=== PATIENT | female | born 1945 | race African-American/Black ===

== ENCOUNTER 2021-02-12 11:43 | Inpatient (IN) | payer MEDICAID, MEDICARE ==
[~2021-02-12] VITALS: Ht 167.6 cm; Wt 50.8 kg
[2021-02-12] MEDS ORDERED: SODIUM CHLORIDE 0.9% 500 ML IV ONE (12:00)
[2021-02-12 14:37] LABS: Basophils # (auto) 0 10 ^3/uL (0-0.2); Eosinophils # (auto) 0 10 ^3/uL (0-0.8); Hemoglobin 10.2 g/dL (12.2-16.2); Monocytes # (auto) 0.5 10 ^3/uL (0-1.3); Nucleated Red Blood Cells % 0.1 %
[2021-02-12 14:39] LABS: Basophils % (auto) 0.4 % (0.0-2.0); Eosinophils % (auto) 0.4 % (0.0-7.0); Hematocrit 31.6 % (36.0-46.0); Lymphocytes # (auto) 0.8 10 ^3/uL (0.4-5.4); Lymphocytes % (auto) 9.9 % (10.0-50.0); Mean Corpuscular Hemoglobin 28.5 pg (28.0-32.0); Mean Corpuscular Hgb Conc. 32.3 g/dL (32.0-36.0); Mean Corpuscular Volume 88.1 fL (80.0-100.0); Monocytes % (auto) 5.9 % (0.0-12.0); Neutrophils # (auto) 6.5 10 ^3/uL (1.6-8.6); Neutrophils % (auto) 83.4 % (37.0-80.0); Platelet Count (auto) 444 10^3/uL (140-450); Red Blood Cells 3.58 10^6/uL (4.0-5.20); White Blood Cell 7.8 10^3/uL (4.4-10.8)
[2021-02-12] MEDS ORDERED: cefTRIAXone 1GM/50ML D5W 50 ML IV ONE (14:45)
[2021-02-12] MEDS ORDERED: CLINDAMYCIN 600MG IV 50 ML IV ONE (14:45)
[2021-02-12 14:47] LABS: Albumin 1.9 g/dL (3.4-5.0); Calcium 8.9 mg/dL (8.5-10.1); Potassium 4.2 mmol/L (3.5-5.1)
[2021-02-12 14:50] LABS: BUN/Creatinine Ratio 51.5; Bilirubin, Total 0.8 mg/dL (0.2-1.0)
[2021-02-12 14:51] LABS: Lactic Acid w/Reflex 3.2 mmol/L (0.4-2.0)
[2021-02-12] MEDS ORDERED: MORPHINE SULF INJ 2 MG/ML SYRINGE 1ML IV PRN ×3 (16:15→18:30)
[2021-02-12] MEDS ORDERED: NITROGLYCERIN 0.4 MG SL TAB SL PRN ×2 (16:15→18:30)
[2021-02-12] MEDS ORDERED: SILV1CRE EX (17:32)
[2021-02-12] MEDS ORDERED: SERT-275 PO (17:32)
[2021-02-12] MEDS ORDERED: MEGE1SUS5 PO (17:32)
[2021-02-12] MEDS ORDERED: OMEP-260 PO (17:32)
[2021-02-12] MEDS ORDERED: NUTR-397 PO (17:36)
[2021-02-12] MEDS ORDERED: HYDROcodone-ACET 5/325MG TAB PO PRN (18:30)
[2021-02-12] MEDS: SODIUM CHLORIDE 0.9% 1,000 ML IV SCH (18:30)
[2021-02-12] MEDS ORDERED: ALUM & MAG HYDROX-SIMETH LIQ(MAALOX) 30 ML PO PRN (18:30)
[2021-02-12] MEDS ORDERED: ONDANSETRON HCL 4 MG/2 ML VIAL IV PRN (18:30)
[2021-02-12] MEDS ORDERED: LORazepam 0.5 MG TAB PO PRN (18:30)
[2021-02-12] MEDS ORDERED: VANCOMYCIN PER PHARMACY 0 MG IV SCH (18:30)
[2021-02-12] MEDS ORDERED: DOCUSATE SOD 100 MG CAP PO PRN (18:30)
[2021-02-12] MEDS ORDERED: ACETAMINOPHEN 325 MG TAB PO PRN (18:30)
[2021-02-12 19:09] LABS: Cholesterol 111 mg/dL (< 200); HDL Cholesterol 25 mg/dL (40-59); LDL Cholesterol 79 mg/dL (< 100); Triglycerides 123 mg/dL (< 150)
[2021-02-12] MEDS ORDERED: VANCOMYCIN 1GM/250ML 250 ML IV ONE (19:30)
[2021-02-12 20:00] VITALS: BP 130/74
[2021-02-12 22:00] VITALS: BP 130/74
[2021-02-13] MEDS: PIPERACILLIN-TAZOB 2.25GM 50 ML IV SCH ×4 (00:43→17:54)
[2021-02-13 02:24] LABS: Basophils # (auto) 0 10 ^3/uL (0-0.2); Basophils % (auto) 0.4 % (0.0-2.0); Eosinophils # (auto) 0.1 10 ^3/uL (0-0.8); Eosinophils % (auto) 1.1 % (0.0-7.0); Hematocrit 28.5 % (36.0-46.0); Hemoglobin 9.3 g/dL (12.2-16.2); Lymphocytes # (auto) 0.9 10 ^3/uL (0.4-5.4); Lymphocytes % (auto) 13.2 % (10.0-50.0); Mean Corpuscular Hemoglobin 28.6 pg (28.0-32.0); Mean Corpuscular Hgb Conc. 32.7 g/dL (32.0-36.0); Mean Corpuscular Volume 87.4 fL (80.0-100.0); Monocytes # (auto) 0.7 10 ^3/uL (0-1.3); Monocytes % (auto) 9.9 % (0.0-12.0); Neutrophils % (auto) 75.4 % (37.0-80.0); Nucleated Red Blood Cells % 0.1 %; Platelet Count (auto) 414 10^3/uL (140-450); Red Blood Cells 3.26 10^6/uL (4.0-5.20); Red Cell Distribution Width 15.1 % (11.8-14.3); White Blood Cell 6.6 10^3/uL (4.4-10.8)
[2021-02-13 02:42] LABS: INR 1.19 (0.9-1.15)
[2021-02-13 02:43] LABS: Albumin 1.7 g/dL (3.4-5.0); BUN/Creatinine Ratio 46.8; Calcium 8.1 mg/dL (8.5-10.1); Magnesium 1.8 mg/dL (1.6-2.6); Potassium 3.9 mmol/L (3.5-5.1)
[2021-02-13 02:46] LABS: Bilirubin, Total 0.8 mg/dL (0.2-1.0); Phosphorus 2.6 mg/dL (2.5-4.90); Total Protein 6.3 g/dL (6.4-8.2)
[2021-02-13 05:00] VITALS: BP 138/91
[2021-02-13 06:47] LABS: Basophils # (auto) 0 10 ^3/uL (0-0.2); Basophils % (auto) 0.6 % (0.0-2.0); Eosinophils # (auto) 0.1 10 ^3/uL (0-0.8); Eosinophils % (auto) 1.6 % (0.0-7.0); Hematocrit 28.9 % (36.0-46.0); Hemoglobin 9.6 g/dL (12.2-16.2); Mean Corpuscular Hemoglobin 28.9 pg (28.0-32.0); Mean Corpuscular Hgb Conc. 33.2 g/dL (32.0-36.0); Mean Corpuscular Volume 87.1 fL (80.0-100.0); Monocytes # (auto) 0.7 10 ^3/uL (0-1.3); Monocytes % (auto) 11.2 % (0.0-12.0); Neutrophils # (auto) 4.7 10 ^3/uL (1.6-8.6); Neutrophils % (auto) 71.6 % (37.0-80.0); Platelet Count (auto) 452 10^3/uL (140-450); Red Blood Cells 3.32 10^6/uL (4.0-5.20); White Blood Cell 6.5 10^3/uL (4.4-10.8)
[2021-02-13 07:03] LABS: Calcium 8.5 mg/dL (8.5-10.1); Potassium 3.6 mmol/L (3.5-5.1)
[2021-02-13 07:08] LABS: BUN/Creatinine Ratio 41.4
[2021-02-13 08:00] VITALS: BP 124/78
[2021-02-13] MEDS ORDERED: ENOXAPARIN SOD 40 MG/0.4 ML SYRINGE SC SCH (10:00)
[2021-02-13] MEDS: SODIUM CHLORIDE 0.9% 1,000 ML IV SCH (11:10)
[2021-02-13 12:00] VITALS: BP 124/73
[2021-02-13 16:00] VITALS: BP 126/73
[2021-02-13] MEDS: VANCOMYCIN 1GM/250ML 250 ML IV SCH (17:25)
[2021-02-13 20:00] VITALS: BP 136/80
[2021-02-13 22:00] VITALS: BP 136/80
[2021-02-14] MEDS: PIPERACILLIN-TAZOB 2.25GM 50 ML IV SCH ×4 (00:03→18:31)
[2021-02-14] MEDS: SODIUM CHLORIDE 0.9% 1,000 ML IV SCH ×2 (03:50→17:07)
[2021-02-14 05:00] VITALS: BP 130/70
[2021-02-14 07:59] LABS: Basophils # (auto) 0 10 ^3/uL (0-0.2); Basophils % (auto) 0.5 % (0.0-2.0); Eosinophils # (auto) 0.1 10 ^3/uL (0-0.8); Eosinophils % (auto) 1.6 % (0.0-7.0); Hematocrit 28.2 % (36.0-46.0); Hemoglobin 9.1 g/dL (12.2-16.2); Lymphocytes # (auto) 0.8 10 ^3/uL (0.4-5.4); Lymphocytes % (auto) 13.7 % (10.0-50.0); Mean Corpuscular Hemoglobin 28.3 pg (28.0-32.0); Mean Corpuscular Hgb Conc. 32.2 g/dL (32.0-36.0); Mean Corpuscular Volume 88.1 fL (80.0-100.0); Monocytes # (auto) 0.6 10 ^3/uL (0-1.3); Monocytes % (auto) 9.7 % (0.0-12.0); Neutrophils # (auto) 4.3 10 ^3/uL (1.6-8.6); Neutrophils % (auto) 74.5 % (37.0-80.0); Platelet Count (auto) 465 10^3/uL (140-450); White Blood Cell 5.8 10^3/uL (4.4-10.8)
[2021-02-14 08:00] VITALS: BP 122/68
[2021-02-14 08:08] LABS: Albumin 1.7 g/dL (3.4-5.0); Calcium 8.1 mg/dL (8.5-10.1); Magnesium 1.8 mg/dL (1.6-2.6); Potassium 3.5 mmol/L (3.5-5.1)
[2021-02-14 08:12] LABS: INR 1.18 (0.9-1.15); Partial Thromboplastin Time 26.8 sec (23.0-31.2)
[2021-02-14 08:14] LABS: BUN/Creatinine Ratio 24.6; Bilirubin, Total 0.6 mg/dL (0.2-1.0); Phosphorus 2.1 mg/dL (2.5-4.90); Total Protein 6.3 g/dL (6.4-8.2)
[2021-02-14 12:00] VITALS: BP 127/74
[2021-02-14] MEDS ORDERED: PPN PER PHARMACY 0 ML IV SCH (15:30)
[2021-02-14 16:00] VITALS: BP 140/82
[2021-02-14] MEDS ORDERED: POTASSIUM PHOSPHATE 22 MEQ in SODIUM CHL 0.9% 100 ML IV ONE (16:30)
[2021-02-14] MEDS: VANCOMYCIN 1GM/250ML 250 ML IV SCH (17:06)
[2021-02-14 20:00] VITALS: BP 146/82
[2021-02-14] MEDS ORDERED: AMINO ACID INFUSION IN D10W 1,000 ML IV NR (20:00)
[2021-02-14 22:00] VITALS: BP 146/82
[2021-02-15] MEDS ORDERED: DEXTROSE (50%) 50ML SYRG IV SCH
[2021-02-15] MEDS: PIPERACILLIN-TAZOB 2.25GM 50 ML IV SCH ×3 (00:31→11:02)
[2021-02-15] MEDS: InsuLIN REG 1unit/0.01ml Soln (100units/ml) SC SCH ×4 (00:58→18:00)
[2021-02-15] MEDS: SODIUM CHLORIDE 0.9% 1,000 ML IV SCH ×2 (01:30→14:30)
[2021-02-15 05:00] VITALS: BP 153/89
[2021-02-15] MEDS: ACCU-CHEK COMFORT CURVE STRIP VI SCH ×4 (06:00→17:38)
[2021-02-15] MEDS: ZINC SULFATE 220mg CAP or TAB PO SCH (07:51)
[2021-02-15] MEDS: ASCORBIC ACID 1,000 MG TAB PO SCH (07:51)
[2021-02-15] MEDS: CHOLECALCIFEROL (VITD3) 2,000 UNIT CAP/TAB PO SCH (07:51)
[2021-02-15 08:00] VITALS: BP 132/83
[2021-02-15 08:17] LABS: Albumin 1.6 g/dL (3.4-5.0); Calcium 7.8 mg/dL (8.5-10.1); Magnesium 1.7 mg/dL (1.6-2.6); Potassium 3.3 mmol/L (3.5-5.1)
[2021-02-15 08:26] LABS: BUN/Creatinine Ratio 16.2; Bilirubin, Total 0.4 mg/dL (0.2-1.0); Phosphorus 2.3 mg/dL (2.5-4.90); Pre Albumin 6.1 mg/dL (20.0-40.0)
[2021-02-15] MEDS: PANTOPRAZOLE 40 MG/10 ML VIAL INJ IV SCH (08:34)
[2021-02-15] MEDS ORDERED: MAGNESIUM SULFATE 1GM/100ML 100 ML IV ONE (09:00)
[2021-02-15] MEDS ORDERED: SODIUM CHLORIDE 0.9% 1,000 ML IV SCH ×2 (09:15→20:00)
[2021-02-15] MEDS ORDERED: LIDOCAINE 1% HCL (LOCAL ANESTH.) INJ 20ML MDV ONE (10:00)
[2021-02-15] MEDS ORDERED: POTASSIUM PHOSPHATE 44 MEQ in D5W 5% 250 ML IV ONE (10:00)
[2021-02-15] MEDS ORDERED: ceFAZolin 1GM VL ONE (10:00)
[2021-02-15] MEDS ORDERED: MIDAZOLAM HCL 1MG/1ML-2 ML VIAL ONE (10:31)
[2021-02-15] MEDS ORDERED: KETAMINE HCL 10 ML ONE (10:31)
[2021-02-15] MEDS ORDERED: LIDOCAINE 2% (LOCAL ANESTH.) PF 5ml SDV ONE (10:32)
[2021-02-15] MEDS ORDERED: ONDANSETRON HCL 4 MG/2 ML VIAL ONE (10:32)
[2021-02-15] MEDS ORDERED: ePHEDrine SULFATE 50 MG/ML AMP ONE (10:32)
[2021-02-15] MEDS ORDERED: PHENYLEPHRINE HCL 10 MG/ML VL ONE (10:32)
[2021-02-15] MEDS ORDERED: GLYCOPYRROLATE 0.2 MG/ML 1ML VIAL ONE (10:32)
[2021-02-15] MEDS ORDERED: PROPOFOL 10 MG/ML 20 ML IV ONE (10:32)
[2021-02-15] MEDS ORDERED: ceFAZolin 1GM/50ML 50 ML IV ONE (10:38)
[2021-02-15] MEDS ORDERED: ACCU-CHEK COMFORT CURVE STRIP VI ONE (12:15)
[2021-02-15] MEDS ORDERED: ONDANSETRON HCL 4 MG/2 ML VIAL IV PRN (12:15)
[2021-02-15] MEDS ORDERED: MORPHINE SULFATE 4 MG/ML SYR/VIAL IV PRN (12:15)
[2021-02-15] MEDS ORDERED: DOXYCYCLINE 100MG/250ML 250 ML IV SCH (14:30)
[2021-02-15] MEDS ORDERED: LIDOCAINE 1% (LOCAL ANESTH.) PF 5ml SDV ID ONE (15:00)
[2021-02-15 16:00] VITALS: BP 138/82
[2021-02-15] MEDS ORDERED: PPN PER PHARMACY IV NR ×10 (20:00)
[2021-02-15] MEDS: SODIUM CHLOR 0.9% PF (SALINE LOCK) 10ML VIAL/SYR IV SCH (21:16)
[2021-02-16] MEDS: ACCU-CHEK COMFORT CURVE STRIP VI SCH ×4 (00:10→17:31)
[2021-02-16] MEDS: InsuLIN REG 1unit/0.01ml Soln (100units/ml) SC SCH ×4 (00:18→17:32)
[2021-02-16 05:00] VITALS: BP 153/85
[2021-02-16 08:57] VITALS: BP 150/85
[2021-02-16] MEDS: cefTRIAXone 1GM/50ML D5W 50 ML IV SCH (09:22)
[2021-02-16] MEDS: ASCORBIC ACID 1,000 MG TAB PO SCH (09:23)
[2021-02-16] MEDS: PANTOPRAZOLE 40 MG/10 ML VIAL INJ IV SCH (09:23)
[2021-02-16] MEDS: SODIUM CHLOR 0.9% PF (SALINE LOCK) 10ML VIAL/SYR IV SCH ×2 (09:23→22:11)
[2021-02-16] MEDS: ZINC SULFATE 220mg CAP or TAB PO SCH (09:23)
[2021-02-16] MEDS: CHOLECALCIFEROL (VITD3) 2,000 UNIT CAP/TAB PO SCH (09:24)
[2021-02-16] MEDS: SODIUM CHLORIDE 0.9% 1,000 ML IV SCH (09:24)
[2021-02-16 10:07] LABS: Potassium 3.8 mmol/L (3.5-5.1)
[2021-02-16 10:19] LABS: Albumin 1.6 g/dL (3.4-5.0); BUN/Creatinine Ratio 18.3; Bilirubin, Total 0.4 mg/dL (0.2-1.0); Calcium 8.1 mg/dL (8.5-10.1); Magnesium 2.1 mg/dL (1.6-2.6); Phosphorus 2.4 mg/dL (2.5-4.90); Total Protein 6.3 g/dL (6.4-8.2)
[2021-02-16] MEDS: amLODIPine BESYLATE 5 MG TAB PO SCH (12:16)
[2021-02-16] MEDS: FAMOTIDINE 20 MG TAB PO SCH (12:16)
[2021-02-16 13:09] VITALS: BP 146/85
[2021-02-16 16:40] VITALS: BP 152/96
[2021-02-16] MEDS: Glucerna Carbsteady SHAKE Vanilla 8oz PO SCH (17:31)
[2021-02-16] MEDS: DOXYCYCLINE 100MG/250ML 250 ML IV SCH (17:31)
[2021-02-16 22:00] VITALS: BP 106/84
[2021-02-17 05:00] VITALS: BP 121/81
[2021-02-17] MEDS: DOXYCYCLINE 100MG/250ML 250 ML IV SCH ×2 (05:54→17:21)
[2021-02-17] MEDS: InsuLIN REG 1unit/0.01ml Soln (100units/ml) SC SCH ×4 (05:55→17:21)
[2021-02-17] MEDS: ACCU-CHEK COMFORT CURVE STRIP VI SCH ×4 (05:55→17:21)
[2021-02-17] MEDS: Glucerna Carbsteady SHAKE Vanilla 8oz PO SCH ×2 (07:45→17:21)
[2021-02-17 09:00] VITALS: BP 140/82
[2021-02-17] MEDS: cefTRIAXone 1GM/50ML D5W 50 ML IV SCH (09:32)
[2021-02-17] MEDS: SODIUM CHLOR 0.9% PF (SALINE LOCK) 10ML VIAL/SYR IV SCH (09:38)
[2021-02-17] MEDS: ZINC SULFATE 220mg CAP or TAB PO SCH (09:38)
[2021-02-17] MEDS: ASCORBIC ACID 1,000 MG TAB PO SCH (09:39)
[2021-02-17] MEDS: CHOLECALCIFEROL (VITD3) 2,000 UNIT CAP/TAB PO SCH (09:39)
[2021-02-17] MEDS: FAMOTIDINE 20 MG TAB PO SCH (09:39)
[2021-02-17] MEDS: amLODIPine BESYLATE 5 MG TAB PO SCH (09:39)
[2021-02-17 13:00] VITALS: BP 139/83
[2021-02-17] MEDS ORDERED: ZINC220T6 PO (14:05)
[2021-02-17] MEDS ORDERED: CHOL1CAP47 PO (14:05)
[2021-02-17] MEDS ORDERED: ASCO10003 PO (14:05)
[2021-02-17] MEDS ORDERED: DOXY-286 PO (14:05)
[2021-02-17 17:00] VITALS: BP 147/87
[2021-02-17 22:00] VITALS: BP 134/86
[2021-02-18] MEDS: InsuLIN REG 1unit/0.01ml Soln (100units/ml) SC SCH ×5 (01:16→23:45)
[2021-02-18] MEDS: SODIUM CHLOR 0.9% PF (SALINE LOCK) 10ML VIAL/SYR IV SCH ×3 (01:17→22:24)
[2021-02-18 05:00] VITALS: BP 131/78
[2021-02-18] MEDS: DOXYCYCLINE 100MG/250ML 250 ML IV SCH ×2 (05:11→16:58)
[2021-02-18] MEDS: ACCU-CHEK COMFORT CURVE STRIP VI SCH ×5 (06:25→23:48)
[2021-02-18] MEDS: Glucerna Carbsteady SHAKE Vanilla 8oz PO SCH ×2 (07:08→16:58)
[2021-02-18 09:00] VITALS: BP 133/77
[2021-02-18] MEDS: CEFTRIAXONE SODIUM 2 GM in D5W 5% 50 ML IV SCH (09:29)
[2021-02-18] MEDS: FAMOTIDINE 20 MG TAB PO SCH (09:30)
[2021-02-18] MEDS: ASCORBIC ACID 1,000 MG TAB PO SCH (09:30)
[2021-02-18] MEDS: ZINC SULFATE 220mg CAP or TAB PO SCH (09:30)
[2021-02-18] MEDS: amLODIPine BESYLATE 5 MG TAB PO SCH (09:30)
[2021-02-18] MEDS: CHOLECALCIFEROL (VITD3) 2,000 UNIT CAP/TAB PO SCH (09:31)
[2021-02-18] MEDS ORDERED: SOD CHL 0.45% WITH 20MEQ KCL 1,000 ML IV ONE (12:30)
[2021-02-18 13:00] VITALS: BP 136/85
[2021-02-18 17:24] VITALS: BP 152/96
[2021-02-18 22:19] VITALS: BP 148/87
[2021-02-19 05:04] VITALS: BP 146/84
[2021-02-19] MEDS: DOXYCYCLINE 100MG/250ML 250 ML IV SCH ×2 (05:06→16:45)
[2021-02-19] MEDS: InsuLIN REG 1unit/0.01ml Soln (100units/ml) SC SCH ×3 (06:00→17:51)
[2021-02-19] MEDS: ACCU-CHEK COMFORT CURVE STRIP VI SCH ×3 (06:13→17:52)
[2021-02-19] MEDS: Glucerna Carbsteady SHAKE Vanilla 8oz PO SCH ×2 (08:00→17:51)
[2021-02-19 08:54] VITALS: BP 146/86
[2021-02-19] MEDS: CEFTRIAXONE SODIUM 2 GM in D5W 5% 50 ML IV SCH (10:01)
[2021-02-19] MEDS: SODIUM CHLOR 0.9% PF (SALINE LOCK) 10ML VIAL/SYR IV SCH (10:01)
[2021-02-19] MEDS: amLODIPine BESYLATE 5 MG TAB PO SCH (10:03)
[2021-02-19] MEDS: FAMOTIDINE 20 MG TAB PO SCH (10:04)
[2021-02-19] MEDS: ASCORBIC ACID 1,000 MG TAB PO SCH (10:04)
[2021-02-19] MEDS: CHOLECALCIFEROL (VITD3) 2,000 UNIT CAP/TAB PO SCH (10:04)
[2021-02-19] MEDS: ZINC SULFATE 220mg CAP or TAB PO SCH (10:05)
[2021-02-19 13:00] VITALS: BP 128/86
[2021-02-19 16:40] VITALS: BP 129/78
[2021-02-19 22:00] VITALS: BP 115/83
[2021-02-20] MEDS: SODIUM CHLOR 0.9% PF (SALINE LOCK) 10ML VIAL/SYR IV SCH ×2 (00:32→11:10)
[2021-02-20] MEDS: ACCU-CHEK COMFORT CURVE STRIP VI SCH ×4 (00:33→17:53)
[2021-02-20] MEDS: DOXYCYCLINE 100MG/250ML 250 ML IV SCH ×2 (04:29→16:30)
[2021-02-20 05:00] VITALS: BP 119/79
[2021-02-20] MEDS: InsuLIN REG 1unit/0.01ml Soln (100units/ml) SC SCH ×4 (05:28→17:52)
[2021-02-20 09:00] VITALS: BP 125/82
[2021-02-20] MEDS: Glucerna Carbsteady SHAKE Vanilla 8oz PO SCH ×2 (09:25→17:52)
[2021-02-20] MEDS: CEFTRIAXONE SODIUM 2 GM in D5W 5% 50 ML IV SCH (11:10)
[2021-02-20] MEDS: ZINC SULFATE 220mg CAP or TAB PO SCH (11:10)
[2021-02-20] MEDS: amLODIPine BESYLATE 5 MG TAB PO SCH (11:10)
[2021-02-20] MEDS: CHOLECALCIFEROL (VITD3) 2,000 UNIT CAP/TAB PO SCH (11:11)
[2021-02-20] MEDS: ASCORBIC ACID 1,000 MG TAB PO SCH (11:11)
[2021-02-20] MEDS: FAMOTIDINE 20 MG TAB PO SCH (11:11)
[2021-02-20] MEDS ORDERED: METOPROLOL TARTRATE 25 MG TAB PO ONE (11:15)
[2021-02-20] MEDS ORDERED: METO25TA5 PO (11:16)
[2021-02-20 13:00] VITALS: BP 122/81
[2021-02-20 17:00] VITALS: BP 116/74
[2021-02-20] MEDS ORDERED: METOPROLOL TARTRATE 25 MG TAB PO SCH (22:00)
== END 2021-02-20 19:42 | disposition home health service (06) | DRG 570 ==
LOC: ER 11:43 → TELE 16:10 → TELE-CENTR 17:30 → TELE-EAST 02-13 07:15
PROVIDERS: ADMIT Hospitalist; ATTEND Internal Medicine
PROC: 02HV33Z Insertion of Infusion Device into Superior Vena Cava, Percutaneous Approach (ICD-10-PCS; 2021-02-15)
PROC: B548ZZA Ultrasonography of Superior Vena Cava, Guidance (ICD-10-PCS; 2021-02-15)
PROC: 0J9L0ZZ Drainage of Right Upper Leg Subcutaneous Tissue and Fascia, Open Approach (ICD-10-PCS; 2021-02-15)
PROC: 0JBL0ZZ Excision of Right Upper Leg Subcutaneous Tissue and Fascia, Open Approach (ICD-10-PCS; principal; 2021-02-15 10:46)
DX: L89.219 Pressure ulcer of right hip, unspecified stage (principal); U07.1 COVID-19; E43 Unspecified severe protein-calorie malnutrition; R53.2 Functional quadriplegia; N17.9 Acute kidney failure, unspecified; Z68.1 Body mass index [BMI] 19.9 or less, adult; L89.154 Pressure ulcer of sacral region, stage 4; R74.01 Elevation of levels of liver transaminase levels; F03.90 Unspecified dementia, unspecified severity, without behavioral disturbance, psychotic disturbance, mood disturbance, and anxiety; B96.20 Unspecified Escherichia coli [E. coli] as the cause of diseases classified elsewhere; B95.2 Enterococcus as the cause of diseases classified elsewhere; B95.62 Methicillin resistant Staphylococcus aureus infection as the cause of diseases classified elsewhere; L89.329 Pressure ulcer of left buttock, unspecified stage; L89.319 Pressure ulcer of right buttock, unspecified stage; E86.0 Dehydration; D64.9 Anemia, unspecified; M62.84 Sarcopenia; E11.65 Type 2 diabetes mellitus with hyperglycemia; I10 Essential (primary) hypertension; R62.7 Adult failure to thrive; Z74.01 Bed confinement status; Z99.3 Dependence on wheelchair; Z79.899 Other long term (current) drug therapy
CPT/HCPCS: 36415; 36569; 71045; 80048; 80053; 80061; 82040; 82565; 82962; 83036; 83605; 83735; 84100; 84443; 84478; 84484; 85025; 85610; 85652; 85730; 86850; 86900; 86901; 87040; 87070; 87075; 87077; 87186; 87205; 87426; 92610; 93005; 96365; 96368; A4565; C9113; G0378; J0690; J0696; J1815; J2001; J2250; J2405; J2543; J2704; J3490; J7060

== ENCOUNTER 2021-09-01 10:08 | Inpatient (IN) | payer MEDICARE ==
[~2021-09-01] VITALS: Ht 157.5 cm; Wt 40.8 kg
[~2021-09-01 10:08] MED LIST: ASCO10003 PO; CALC1CHW PO; CHOL1CAP47 PO; FERR27TA2 PO; METO25TA5 PO
[2021-09-01 11:14] LABS: Basophils # (auto) 0 10 ^3/uL (0-0.2); Basophils % (auto) 0.3 % (0.0-2.0); Eosinophils # (auto) 0 10 ^3/uL (0-0.8); Eosinophils % (auto) 0.1 % (0.0-7.0); Hematocrit 18.2 % (36.0-46.0); Lymphocytes # (auto) 0.5 10 ^3/uL (0.4-5.4); Lymphocytes % (auto) 5.7 % (10.0-50.0); Mean Corpuscular Hemoglobin 28.3 pg (28.0-32.0); Mean Corpuscular Hgb Conc. 32.1 g/dL (32.0-36.0); Monocytes # (auto) 0.1 10 ^3/uL (0-1.3); Monocytes % (auto) 0.6 % (0.0-12.0); Neutrophils # (auto) 8.4 10 ^3/uL (1.6-8.6); Neutrophils % (auto) 93.3 % (37.0-80.0); Nucleated Red Blood Cells % 0.4 %; Red Blood Cells 2.07 10^6/uL (4.0-5.20); Red Cell Distribution Width 17.5 % (11.8-14.3)
[2021-09-01 11:21] LABS: Albumin 1.1 g/dL (3.4-5.0); Anion Gap 24 (5-15); Blood Urea Nitrogen 25 mg/dL (7-18); Calcium 8.5 mg/dL (8.5-10.1); Chloride 68 mmol/L (98-107); Glucose 140 mg/dL (74-106)
[2021-09-01 11:23] LABS: Hemoglobin 5.8 g/dL (12.2-16.2)
[2021-09-01 11:25] LABS: Alanine Aminotransferase 16 U/L (13-56); Alkaline Phosphatase 133 U/L (45-117); Aspartate Aminotransferase 34 U/L (15-37); Bilirubin, Total 0.7 mg/dL (0.2-1.0); GFR African American 139 mL/min; GFR Non-African American 115 mL/min; Total Protein 5.2 g/dL (6.4-8.2)
[2021-09-01] MEDS ORDERED: SODIUM CHLORIDE 0.9% 1,000 ML IV ONE (11:30)
[2021-09-01] MEDS ORDERED: AZITHROMYCIN 500MG/ 250ML 250 ML IV ONE (11:30)
[2021-09-01] MEDS ORDERED: cefTRIAXone 1GM/50ML D5W 50 ML IV ONE (11:30)
[2021-09-01 11:57] LABS: Carbon Dioxide 9 mmol/L (21-32); Sodium 101 mmol/L (136-145)
[2021-09-01] MEDS ORDERED: SODIUM BICARBONATE 8.4 % INJ 50ML VIAL IV ONE (12:15)
[2021-09-01] MEDS ORDERED: SODIUM CHL 3% 500 ML IV ONE (12:15)
[2021-09-01 12:19] LABS: BUN/Creatinine Ratio 45.5
[2021-09-01] MEDS ORDERED: SODIUM BICARBONATE 8.4% INJ 50ML SYRINGE ONE (12:41)
[2021-09-01] MEDS ORDERED: ALBUMIN 25% 100 ML IV ONE (12:45)
[2021-09-01] MEDS ORDERED: NITROGLYCERIN 0.4 MG SL TAB SL PRN (13:15)
[2021-09-01] MEDS ORDERED: MORPHINE SULFATE INJECTION 2 MG/ML SYRG IV PRN (13:15)
[2021-09-01] MEDS ORDERED: SODIUM BICARBONATE 50ML VIAL 150 ML in D5W 5% 1,000 ML IV SCH (13:15)
[2021-09-01] MEDS ORDERED: CALCIUM GLUC 1,000mg/50ml-NS 50 ML IV ONE (13:15)
[2021-09-01] MEDS ORDERED: InsuLIN REG 1unit/0.01ml Soln (100units/ml) IV ONE (13:15)
[2021-09-01] MEDS ORDERED: ALBUTEROL SULF 2.5 MG/0.5ML(0.5%) NEB SOLN NEB ONE (13:15)
[2021-09-01] MEDS ORDERED: DEXTROSE (50%) 50ML SYRG IV ONE (13:15)
[2021-09-01 14:18] LABS: INR 1.94 (0.9-1.15); Partial Thromboplastin Time 48.6 sec (23.6-33.0)
[2021-09-01 14:23] LABS: Lactic Acid w/Reflex 11.2 mmol/L (0.4-2.0)
[2021-09-01] MEDS: PIPERACILLIN-TAZOB 3.375GM 100 ML IV SCH ×2 (14:52→22:26)
[2021-09-01 14:58] LABS: % Iron Saturation 46.1 % (15-50); BUN/Creatinine Ratio 38.1; Calcium 7.8 mg/dL (8.5-10.1); Potassium 3.9 mmol/L (3.5-5.1)
[2021-09-01 16:00] VITALS: BP 90/56
[2021-09-01 16:15] VITALS: BP 125/76
[2021-09-01 17:30] VITALS: BP 111/69
[2021-09-01 17:30] LABS: Urine Bacteria MOD /hpf (None Seen); Urine Blood Negative /uL (Negative); Urine Hyaline Cast FEW /lpf (0 - 2); Urine Mucus FEW (None Seen); Urine Specific Gravity 1.006 (1.001-1.035); Urine WBC 45 /hpf (0 - 5)
[2021-09-01 17:45] VITALS: BP 111/74
[2021-09-01 19:45] VITALS: BP 112/76
[2021-09-01 20:30] VITALS: BP 115/71
[2021-09-01 22:23] LABS: Hematocrit 27.3 % (36.0-46.0); Hemoglobin 9.3 g/dL (12.2-16.2)
[2021-09-01 23:38] LABS: Albumin 1.2 g/dL (3.4-5.0); Calcium 7.4 mg/dL (8.5-10.1); Potassium 3.2 mmol/L (3.5-5.1)
[2021-09-01 23:41] LABS: BUN/Creatinine Ratio 42.3; Bilirubin, Total 1.5 mg/dL (0.2-1.0); Total Protein 4.2 g/dL (6.4-8.2)
[2021-09-02] MEDS ORDERED: SODIUM BICARBONATE 50ML VIAL 150 ML in D5W 5% 1,000 ML IV SCH (00:30)
[2021-09-02] MEDS ORDERED: ALBUMIN 5% 250 ML IV ONE (04:15)
[2021-09-02] MEDS: PIPERACILLIN-TAZOB 3.375GM 100 ML IV SCH ×2 (06:00→16:31)
[2021-09-02 07:00] LABS: Hematocrit 24.5 % (36.0-46.0); Hemoglobin 8.7 g/dL (12.2-16.2); Mean Corpuscular Hemoglobin 30.9 pg (28.0-32.0); Mean Corpuscular Hgb Conc. 35.6 g/dL (32.0-36.0); Mean Corpuscular Volume 86.9 fL (80.0-100.0); Red Blood Cells 2.82 10^6/uL (4.0-5.20); Red Cell Distribution Width 14.5 % (11.8-14.3); White Blood Cell 9.1 10^3/uL (4.4-10.8)
[2021-09-02 07:04] LABS: Basophils % (manual) 0 (0.0-2.0); Blast Cells 0; Eosinophils % (manual) 0 (0-7); Myelocytes % 0; Promyelocytes % 0; Reactive Lymphocytes 0
[2021-09-02] MEDS ORDERED: SODIUM BICARBONATE 8.4 % INJ 50ML VIAL IV ONE (07:10)
[2021-09-02 07:13] LABS: Albumin 1.5 g/dL (3.4-5.0); BUN/Creatinine Ratio 41.8; Calcium 7.6 mg/dL (8.5-10.1); Total Protein 4.4 g/dL (6.4-8.2)
[2021-09-02 08:45] LABS: Potassium 2.9 mmol/L (3.5-5.1)
[2021-09-02] MEDS ORDERED: MAGNESIUM SULFATE 1GM/100ML 100 ML IV ONE (09:15)
[2021-09-02] MEDS: NOREPINEPHRINE 8 MG/250ML KIT 250 ML IV SCH (09:15)
[2021-09-02] MEDS ORDERED: SODIUM CHL 3% 500 ML IV ONE (09:15)
[2021-09-02] MEDS ORDERED: NOREPINEPHRINE 8 MG/250ML KIT 250 ML IV ONE (09:21)
[2021-09-02 09:30] LABS: Magnesium 1.4 mg/dL (1.6-2.6); Phosphorus 2.6 mg/dL (2.5-4.90)
[2021-09-02 10:41] LABS: Band Neutrophils % (manual) 49; Lymphocytes % (manual) 2 (10.0-50.0); Metamyelocytes % 1; Monocytes % (manual) 3 (0-12)
[2021-09-02] MEDS: POTASSIUM CHL 20MEQ/100ML 100 ML IV SCH ×4 (11:19→16:54)
[2021-09-02] MEDS ORDERED: PANTOPRAZOLE 40 MG/10 ML VIAL INJ IV ONE (11:45)
[2021-09-02] MEDS: MAGNESIUM SULFATE 1GM/100ML 100 ML IV SCH ×2 (12:44→15:25)
[2021-09-02] MEDS ORDERED: IOHEXOL 300 MG/ML 100ML BOTTLE IJ ONE (12:52)
[2021-09-02] MEDS: AZITHROMYCIN 500MG/ 250ML 250 ML IV SCH (13:07)
[2021-09-02] MEDS ORDERED: CEFD300C2 PO (15:14)
[2021-09-02] MEDS ORDERED: NITR100C6 PO (15:14)
[2021-09-02] MEDS ORDERED: AMPI500C8 GT (15:14)
[2021-09-02] MEDS ORDERED: FLUC150T2 PO (15:14)
[2021-09-02] MEDS: POTASSIUM CHLORIDE IV SCH (16:22)
[2021-09-02] MEDS: SOD CHL 0.45% IV SCH (16:22)
[2021-09-02] MEDS: SODIUM BICARBONATE IV SCH (16:22)
[2021-09-02 17:45] VITALS: BP 111/39
[2021-09-02 18:00] VITALS: BP 120/41
[2021-09-02 18:30] VITALS: BP 109/39
[2021-09-02 18:42] LABS: Potassium 4.2 mmol/L (3.5-5.1)
[2021-09-02 19:00] VITALS: BP 114/37
[2021-09-02 19:09] LABS: BUN/Creatinine Ratio 47.6
[2021-09-02 19:28] LABS: Calcium 7.7 mg/dL (8.5-10.1)
[2021-09-02 20:42] VITALS: BP 126/37
[2021-09-02] MEDS: PANTOPRAZOLE 40 MG/10 ML VIAL INJ IV SCH (23:44)
[2021-09-03] MEDS: PIPERACILLIN-TAZOB 3.375GM 100 ML IV SCH ×3 (00:39→14:11)
[2021-09-03] MEDS: SODIUM BICARBONATE IV SCH (03:03)
[2021-09-03] MEDS: POTASSIUM CHLORIDE IV SCH (03:03)
[2021-09-03] MEDS: SOD CHL 0.45% IV SCH (03:03)
[2021-09-03 06:28] LABS: Basophils # (auto) 0 10 ^3/uL (0-0.2); Eosinophils # (auto) 0 10 ^3/uL (0-0.8); Hemoglobin 8.3 g/dL (12.2-16.2); Lymphocytes # (auto) 0.2 10 ^3/uL (0.4-5.4); Mean Corpuscular Hemoglobin 29.9 pg (28.0-32.0); Monocytes # (auto) 0.1 10 ^3/uL (0-1.3)
[2021-09-03 06:38] LABS: INR 1.48 (0.9-1.15)
[2021-09-03 06:42] LABS: Basophils % (auto) 0.1 % (0.0-2.0); Lymphocytes % (auto) 1.6 % (10.0-50.0); Mean Corpuscular Hgb Conc. 34.7 g/dL (32.0-36.0); Mean Corpuscular Volume 86.3 fL (80.0-100.0); Monocytes % (auto) 0.7 % (0.0-12.0); Neutrophils # (auto) 11.5 10 ^3/uL (1.6-8.6); Neutrophils % (auto) 97.6 % (37.0-80.0); Nucleated Red Blood Cells % 0.1 %; Red Blood Cells 2.78 10^6/uL (4.0-5.20); White Blood Cell 11.8 10^3/uL (4.4-10.8)
[2021-09-03 06:49] LABS: Potassium 4.8 mmol/L (3.5-5.1)
[2021-09-03 07:01] LABS: BUN/Creatinine Ratio 57.1; Calcium 7.8 mg/dL (8.5-10.1); Phosphorus 2.3 mg/dL (2.5-4.90)
[2021-09-03] MEDS ORDERED: DEXTROSE (50%) 50ML SYRG IV ONE (08:15)
[2021-09-03] MEDS ORDERED: DEXTROSE 50% SYRINGE 50 ML IV ONE (08:17)
[2021-09-03] MEDS: NOREPINEPHRINE 8 MG/250ML KIT 250 ML IV SCH (09:15)
[2021-09-03] MEDS ORDERED: SOD CHL 0.45% 1,000 ML IV SCH (10:15)
[2021-09-03] MEDS: AZITHROMYCIN 500MG/ 250ML 250 ML IV SCH (10:34)
[2021-09-03] MEDS: PANTOPRAZOLE 40 MG/10 ML VIAL INJ IV SCH (10:34)
[2021-09-03 16:00] VITALS: BP 136/56
== END 2021-09-03 17:00 | disposition hospice, home (50) | DRG 871 ==
LOC: ER 10:08 → EDBD 10:08 → TELE 13:48
PROVIDERS: ADMIT Nurse Practitioner Acute Care; ATTEND Internal Medicine
PROC: 30233N1 Transfusion of Nonautologous Red Blood Cells into Peripheral Vein, Percutaneous Approach (ICD-10-PCS; 2021-09-01)
PROC: 05H933Z Insertion of Infusion Device into Right Brachial Vein, Percutaneous Approach (ICD-10-PCS; 2021-09-01)
PROC: B54MZZA Ultrasonography of Right Upper Extremity Veins, Guidance (ICD-10-PCS; 2021-09-01)
PROC: 30233K1 Transfusion of Nonautologous Frozen Plasma into Peripheral Vein, Percutaneous Approach (ICD-10-PCS; principal; 2021-09-02)
PROC: 05HF33Z Insertion of Infusion Device into Left Cephalic Vein, Percutaneous Approach (ICD-10-PCS; 2021-09-02)
PROC: B54NZZA Ultrasonography of Left Upper Extremity Veins, Guidance (ICD-10-PCS; 2021-09-02)
DX: A41.9 Sepsis, unspecified organism (principal); N17.0 Acute kidney failure with tubular necrosis; J69.0 Pneumonitis due to inhalation of food and vomit; G93.41 Metabolic encephalopathy; L89.014 Pressure ulcer of right elbow, stage 4; L89.214 Pressure ulcer of right hip, stage 4; L89.154 Pressure ulcer of sacral region, stage 4; E43 Unspecified severe protein-calorie malnutrition; R65.21 Severe sepsis with septic shock; E87.1 Hypo-osmolality and hyponatremia; D68.9 Coagulation defect, unspecified; Z68.1 Body mass index [BMI] 19.9 or less, adult; E86.0 Dehydration; R62.7 Adult failure to thrive; D64.9 Anemia, unspecified; Z20.822 Contact with and (suspected) exposure to COVID-19; E87.5 Hyperkalemia; E83.42 Hypomagnesemia; E86.1 Hypovolemia; E87.6 Hypokalemia; Z66 Do not resuscitate; G30.9 Alzheimer's disease, unspecified; F02.80 Dementia in other diseases classified elsewhere, unspecified severity, without behavioral disturbance, psychotic disturbance, mood disturbance, and anxiety; E11.9 Type 2 diabetes mellitus without complications; L89.209 Pressure ulcer of unspecified hip, unspecified stage; I10 Essential (primary) hypertension; L89.890 Pressure ulcer of other site, unstageable; L89.620 Pressure ulcer of left heel, unstageable; L89.610 Pressure ulcer of right heel, unstageable; E66.01 Morbid (severe) obesity due to excess calories; Z74.01 Bed confinement status; Z80.0 Family history of malignant neoplasm of digestive organs
CPT/HCPCS: 36415; 36430; 71045; 71260; 74177; 80048; 80053; 81001; 82010; 82378; 82550; 82962; 83540; 83550; 83605; 83615; 83690; 83735; 83874; 83880; 83930; 84100; 84484; 84550; 85007; 85014; 85018; 85025; 85027; 85045; 85379; 85610; 85730; 86850; 86900; 86901; 86920; 87040; 87077; 87186; 87426; 93005; 94640; 96361; 96365; 96375; 99291; C9113; G0378; J0696; J1815; J2543; J3480; J7042; P9047